=== PATIENT | male | born 1965 | race Caucasian/White ===

== ENCOUNTER 2020-07-13 22:34 | Emergency (ER) | payer SELFPAY ==
[~2020-07-13] VITALS: Ht 165.1 cm; Wt 84.0 kg
[2020-07-13 22:50] VITALS: BP 138/88
[2020-07-14] MEDS ORDERED: ACETAMINOPHEN 325MG TABLET PO ONE (01:15)
[2020-07-14 01:36] LABS: HEMATOCRIT. 43.1 % (42.0-52.0); HEMOGLOBIN. 14.5 g/dL (14.0-18.0); MEAN CORPUSCULAR HEMOGLOBIN 31.3 pg (28.0-32.0); MEAN CORPUSCULAR VOLUME 93.1 fL (80.0-94.0); MEAN PLATELET VOLUME 8.5 fl (7.4-10.4); PLATELET 243 x1000/uL (130-400); RED BLOOD CELL COUNT 4.63 mill/uL (4.7-6.1); RED CELL DISTRIBUTION WIDTH 13.7 % (11.6-14.6)
[2020-07-14 01:39] LABS: CHLORIDE 105 mEq/L (98-107)
[2020-07-14 02:16] LABS: PLATELET ESTIMATE NORMAL
[2020-07-14] MEDS ORDERED: ASPIRIN 325MG EC TABLET PO ONE (04:45)
== END 2020-07-14 05:33 | disposition left against medical advice (07) ==
LOC: ER 22:34
DX: R07.89 Other chest pain (principal); M79.18 Myalgia, other site
CPT/HCPCS: 36415; 80053; 83880; 84484; 85025; 93005